=== PATIENT | male | born 1960 | race Caucasian/White ===

== ENCOUNTER 2024-04-03 07:14 | Inpatient (IN) | payer MEDICAID ==
[~2024-04-03] VITALS: Ht 182.9 cm; Wt 101.6 kg
[2024-04-03] MEDS: normal saline 1000ML IV soln IVB ONE ×2 (07:59→10:35)
[2024-04-03 08:07] LABS: ALANINE AMINOTRANSFERASE 90 U/L (12-78); ALBUMIN 3.8 G/DL (3.4-5.0); ALBUMIN/GLOBULIN RATIO 0.8 (1.1-1.5); ALKALINE PHOSPHATASE 80 IU/L (46-116); AMYLASE 21 U/L (25-115); ANION GAP 11 (8-16); ASPARTATE AMINO TRANSFERASE 357 U/L (10-37); BILIRUBIN,TOTAL 1.2 MG/DL (0.1-1.0); BLOOD UREA NITROGEN 31 MG/DL (7-18); BUN/CREATININE RATIO 19.3 (10.0-20.0); CALCIUM 9.4 MG/DL (8.5-10.1); CHLORIDE 97 MMOL/L (99-107); CREATININE 1.61 MG/DL (0.60-1.10); GLUCOSE 101 MG/DL (70-104); LIPASE 18 U/L (16-77); SODIUM 132 MMOL/L (135-145); TOTAL CARBON DIOXIDE 24.5 MMOL/L (24-32); TOTAL PROTEIN 8.4 G/DL (6.4-8.2); eCRCL 52 ML/MIN; eGFR 44 ML/MIN
[2024-04-03 08:08] LABS: BASOPHILS % (AUTO) 0.3 % (0-1); EOSINOPHILS % (AUTO) 0.1 % (0-6); HEMATOCRIT 46.5 % (42.0-52.0); HEMOGLOBIN 15.1 g/dl (14.0-17.9); LYMPHOCYTES # (AUTO) 1.1 X10'3 (1.1-4.8); LYMPHOCYTES % (AUTO) 6.8 % (21-51); MEAN CORPUSCULAR HEMOGLOBIN 29.6 PG (27.0-31.0); MEAN CORPUSCULAR HGB CONC 32.6 g/dL (33.0-36.5); MEAN CORPUSCULAR VOLUME 90.9 FL (78-98); MEAN PLATELET VOLUME 9.6 FL (7.4-10.4); MONOCYTES # (AUTO) 1.5 X10'3 (0-0.9); NEUTROPHILS # (AUTO) 12.8 X10'3 (1.8-7.7); NEUTROPHILS % (AUTO) 82.8 % (42-75); PLATELET COUNT 253 X10'3 (140-440); RED BLOOD COUNT 5.12 X10'6 (4.70-6.10); RED CELL DISTRIBUTION WIDTH 14.2 % (11.5-14.5); WHITE BLOOD COUNT 15.4 X10'3 (4.5-11.0)
[2024-04-03] MEDS ORDERED: heparin 10,000 units/1 ML INJ IV ONE (09:40)
[2024-04-03] MEDS: CefTRIAXone 2gm/D5W 50ml BAG 50 ML IV ONE (09:51)
[2024-04-03] MEDS: aspirin 81mg tab.chew PO ONE (09:51)
--- NOTE | 2024-04-03 09:58 | NUR ---
CONFIRMED WITH SY PHARMACIST, INITIAL RATE FOR HEPARIN 1000 UNITS/KG/HR AND INITIAL BOLUS WILL BE 4000 UNITS.
--- NOTE | 2024-04-03 10:02 | NUR ---
INITIAL HEPARIN DRIP DOSING HEPARIN DRIP PROTOCOL INDICATION: CARDIAC PATIENT WEIGHT(KG): 101.6 KG BASE LINE aPTT: PENDING, DRAW BEFORE STARTING BOLUS X1: 4,000 UNIT INFUSION RATE: 1,000 UNIT/HR RN NAME: BHAVANA REPEAT APTT: Q6HR Addendum: 04/03/24 at 1113 by SY GARCIA Pharm BASELINE aPTT: 27
[2024-04-03] MEDS: heparin 10,000 units/1 ML INJ IV ONE (10:26)
[2024-04-03] MEDS: heparin 25,000 UNIT/250ml bag 250 ML IV PRN (10:27)
[2024-04-03] MEDS ORDERED: potassium Cl 40MEQ/1/2NS 520ml 520 ML IV PRN (10:30)
[2024-04-03] MEDS ORDERED: potassium Cl 20 mEq SR tablet PO PRN (10:30)
[2024-04-03] MEDS ORDERED: magnesium hydroxide 30ml (MOM) UD suspension PO PRN (10:30)
[2024-04-03] MEDS ORDERED: morphine 2 MG/ML inj. syringe IV PRN ×2 (10:30)
[2024-04-03] MEDS ORDERED: magnesium Cl slow-release 64mg tablet PO PRN (10:30)
[2024-04-03] MEDS ORDERED: ondansetron/PF 4mg/2ml inj IV PRN (10:30)
[2024-04-03] MEDS ORDERED: acetaminophen 325mg tablet PO PRN (10:30)
[2024-04-03] MEDS ORDERED: magnesium sulf-water 2g/50mL 50 ML IV PRN (10:30)
[2024-04-03] MEDS: metoprolol succinate 25mg (24-HOUR) SR. Tablet PO SCH ×2 (10:30→21:43)
[2024-04-03] MEDS ORDERED: mag hydrox/Alum hydrox/simeth 30ml oral suspension PO PRN (10:30)
[2024-04-03] MEDS ORDERED: magnesium sulf-water 4G/100mL 100 ML IV PRN (10:30)
[2024-04-03] MEDS: MESSAGE TO NURSING IV ONE ×3 (10:35→18:01)
[2024-04-03] MEDS: LORazepam 2 mg/ml vial IV ONE (10:35)
[2024-04-03] MEDS ORDERED: NO HOME MEDS (10:41)
[2024-04-03 11:09] LABS: INR 1.1 INR; PROTHROMBIN TIME 11.8 SECONDS (9.0-12.0)
[2024-04-03] MEDS: nitroGLYCERIN 0.2mg/hour patch TD ONE (11:31)
--- NOTE | 2024-04-03 11:32 | NUR ---
Patient asleep and is not complaining of chest pain. Spoke with Dr. Tyson regarding placing nitro patch with systolic blood pressures running in the low 100's-90's. Will hold nitro patch at this time.
[2024-04-03] MEDS: normal saline 1000ml 1,000 ML IV SCH (12:54)
[2024-04-03 13:55] LABS: BILIRUBIN,URINE SMALL (Neg); CLARITY,URINE SLIGHTLY CLOUDY (Clear); COLOR,URINE YELLOW (Yellow); GLUCOSE, URINE NEGATIVE (Neg); KETONES,URINE 15 mg/dl (Neg); LEUKOCYTE ESTERASE ,URINE NEGATIVE (Neg); NITRITES, URINE POSITIVE (Neg); OCCULT BLOOD,URINE NEGATIVE (Neg); PH,URINE 5.5 (4.8-8.0); PROTEIN,URINE TRACE mg/dl (Neg); UROBILINOGEN,URINE 0.2 E.U/dL (0.2-1.0)
--- NOTE | 2024-04-03 14:06 | NUR ---
Dr Guzman at bedside to assess patient
[2024-04-03 14:20] LABS: HYALINE CASTS >30 /LPF (NEGATIVE); UA COLLECTION TYPE NON-SPECIFIED
[2024-04-03 14:21] LABS: MUCUS STRANDS MANY /LPF (Neg); SQUAMOUS EPITHELIAL CELL,UR FEW /LPF (FEW)
[2024-04-03 14:23] LABS: BACTERIA,URINE 1+ /HPF (Neg); RBC,URINE 0-2 /HPF (0-2); WBC,URINE 0-4 /HPF (0-4)
[2024-04-03 15:00] VITALS: BP 118/81; PULSE 74; RESP 16; TEMP 98; O2SAT 98
[2024-04-03 15:17] LABS: URINE AMPHETAMINE SCREEN POSITIVE (Neg); URINE BARBITUATE SCREEN NEGATIVE (Neg); URINE BENZODIAZEPINES SCREEN NEGATIVE (Neg); URINE CANNABINOID SCREEN POSITIVE (Neg); URINE COCAINE SCREEN NEGATIVE (Neg); URINE METHADONE SCREEN NEGATIVE (Neg); URINE OPIATE SCREEN POSITIVE (Neg); URINE PHENCYCLIDINE SCREEN NEGATIVE (Neg)
[2024-04-03 15:57] VITALS: BP 131/61; PULSE 95; RESP 18; TEMP 97.8; O2SAT 96
--- NOTE | 2024-04-03 17:27 | NUR ---
REVIEW OF HEPARIN DRIP DOSING HEPARIN DRIP PROTOCOL INDICATION: CARDIAC PATIENT WEIGHT(KG): 101.6KG APTT:31 TIME COLLECTED: 1645 CURRENT RATE: 1000 UNITS/HR CHANGE IN INFUSION RATE: 1100 UNITS/HR RE- BOLUS:4000 RN NAME: SHILPA TITUS APTT: 6HOURS Addendum: 04/03/24 at 1800 by Kimberlee Gonzales [facility] RATE INCREASE TO 1200UNITS/HR NOT 1100
[2024-04-03] MEDS: heparin 10,000 units/1 ML INJ IV PRN (17:32)
[2024-04-03 18:00] VITALS: BP 122/79; PULSE 100; RESP 18; TEMP 98.7; O2SAT 97
--- NOTE | 2024-04-03 18:28 | NUR ---
Problems reprioritized. Patient report given, questions answered & plan of care reviewed with Carly. Addendum: 04/03/24 at 1828 by Alonso Mclean RN Amended: Links added.
[2024-04-03] MEDS ORDERED: bisacodyl 5mg tablet.DR PO PRN (19:00)
[2024-04-03 20:00] VITALS: RESP 18; O2SAT 97
[2024-04-03] MEDS: K and/or MAG REPLACEMENT MC SCH (20:00)
[2024-04-03 22:00] VITALS: BP 135/82; PULSE 101; RESP 23; TEMP 98.8; O2SAT 98
[2024-04-04] VITALS (8 sets, daily range): BP systolic 111–140; BP diastolic 65–91; PULSE 89–104; RESP 16–22; TEMP 98.1–99.2; O2SAT 93–99
--- NOTE | 2024-04-04 00:17 | NUR ---
REVIEW OF HEPARIN DRIP DOSING (PROTOCOL) INDICATION: CARDIAC PATIENT WEIGHT(KG): 101.6 KG APTT: 37 SECONDS TIME COLLECTED: 04/03 @ 3530 CURRENT RATE: 1200 UNITS/HR (12 ML/HR) CHANGE IN INFUSION RATE: INCR TO 1400 UNITS/HR (14 ML/HR) RE- BOLUS: 4000 UNITS RN NAME: ASH REPEAT APTT: 04/04 @ 0637
[2024-04-04] MEDS: MESSAGE TO NURSING IV ONE ×4 (00:41→22:07)
--- NOTE | 2024-04-04 06:00 | NUR ---
Patient in room PCU 3028. I have received report from Carly and had the opportunity to ask questions and assume patient care.
--- NOTE | 2024-04-04 06:08 | NUR ---
Problems reprioritized. Patient report given, questions answered & plan of care reviewed with Alonso RN and LEMUEL Mills.
[2024-04-04] MEDS: atorvastatin 20mg tablet PO SCH (07:25)
[2024-04-04] MEDS: aspirin 81mg, enteric-coated 1 TAB TABLET.DR PO SCH (07:25)
[2024-04-04] MEDS: levoFLOXACIN-Levaquin 750MG/D5 150 ML IV SCH (07:26)
[2024-04-04 07:27] LABS: BASOPHILS % (AUTO) 0.2 % (0-1); EOSINOPHILS % (AUTO) 0.1 % (0-6); HEMATOCRIT 37.7 % (42.0-52.0); HEMOGLOBIN 12.4 g/dl (14.0-17.9); LYMPHOCYTES % (AUTO) 8.5 % (21-51); MEAN CORPUSCULAR HEMOGLOBIN 29.5 PG (27.0-31.0); MEAN CORPUSCULAR HGB CONC 32.9 g/dL (33.0-36.5); MEAN CORPUSCULAR VOLUME 89.7 FL (78-98); MEAN PLATELET VOLUME 10.2 FL (7.4-10.4); MONOCYTES % (AUTO) 8.7 % (2-12); NEUTROPHILS # (AUTO) 9.3 X10'3 (1.8-7.7); NEUTROPHILS % (AUTO) 82.5 % (42-75); PLATELET COUNT 198 X10'3 (140-440); RED CELL DISTRIBUTION WIDTH 14.1 % (11.5-14.5); WHITE BLOOD COUNT 11.3 X10'3 (4.5-11.0)
[2024-04-04 07:30] LABS: INR 1.2 INR; PROTHROMBIN TIME 12.4 SECONDS (9.0-12.0)
[2024-04-04 07:49] LABS: ALANINE AMINOTRANSFERASE 178 U/L (12-78); ALBUMIN 2.5 G/DL (3.4-5.0); ALBUMIN/GLOBULIN RATIO 0.6 (1.1-1.5); ALKALINE PHOSPHATASE 103 IU/L (46-116); ANION GAP 10 (8-16); ASPARTATE AMINO TRANSFERASE 300 U/L (10-37); BILIRUBIN,TOTAL 1.3 MG/DL (0.1-1.0); BLOOD UREA NITROGEN 23 MG/DL (7-18); BUN/CREATININE RATIO 23.5 (10.0-20.0); CALCIUM 8.3 MG/DL (8.5-10.1); CHLORIDE 101 MMOL/L (99-107); CHOL/HDL RATIO 2.4 (0.00-4.99); CHOLESTEROL 104 MG/DL (0-200); CREATININE 0.98 MG/DL (0.60-1.10); FREE T4 (FREE THYROXINE) 1.24 NG/DL (0.73-1.40); GLUCOSE 102 MG/DL (70-104); HDL CHOLESTEROL 43 MG/DL (35-60); LDL CHOLESTEROL 40 MG/DL (50-100); PHOSPHORUS 2.1 MG/DL (2.3-4.5); POTASSIUM 3.6 MMOL/L (3.5-5.1); SODIUM 132 MMOL/L (135-145); THYROID STIMULATING HORMONE 3.39 ulU/ml (0.34-4.50); TOTAL CARBON DIOXIDE 21.3 MMOL/L (24-32); TOTAL PROTEIN 6.6 G/DL (6.4-8.2); TRIGLYCERIDES 56 MG/DL (20-135); eCRCL 85 ML/MIN; eGFR 77 ML/MIN
[2024-04-04 07:52] LABS: HEMOGLOBIN A1C 5.8 % (4.5-6.2)
--- NOTE | 2024-04-04 07:57 | NUR ---
REVIEW OF HEPARIN DRIP DOSING HEPARIN DRIP PROTOCOL INDICATION: CARDIAC PATIENT WEIGHT(KG): 101.6 KG APTT: 38 TIME COLLECTED: @0633 CURRENT RATE: 1400 UNIT/HR CHANGE IN INFUSION RATE: INCREASE TO 1600 UNIT/HR RE- BOLUS: 4000 UNIT RN NAME: SHILPA REPEAT APTT: AFTER 6 HOURS
[2024-04-04] MEDS ORDERED: iohexol 350MG/ML 100ml bottle IV ONE (10:50)
[2024-04-04] MEDS: lisinopril 2.5mg tablet PO SCH (12:58)
--- NOTE | 2024-04-04 15:14 | NUR ---
HEPARIN DRIP PROTOCOL INDICATION: CARDIAC PATIENT WEIGHT(KG): 101.6 KG APTT: 39 TIME COLLECTED: 04/04/24@1434 CURRENT RATE: 1600 UNITS/HR CHANGE IN INFUSION RATE: INCREASE TO 1800 UNITS/HR RE- BOLUS: 4100 UNITS RN NAME: SHILPA REPEAT APTT: IN 6 HOURS
--- NOTE | 2024-04-04 18:13 | NUR ---
Problems reprioritized. Patient report given, questions answered & plan of care reviewed with Carly. Addendum: 04/04/24 at 1813 by Alonso Mclean RN Amended: Links added.
--- NOTE | 2024-04-04 21:48 | NUR ---
REVIEW OF HEPARIN DRIP DOSING (PROTOCOL): INDICATION: CARDIAC PATIENT WEIGHT(KG): 101.6 KG APTT: 42 SECONDS TIME COLLECTED: 04/04 @ 6361 CURRENT RATE: 1800 UNITS/HR (18 ML/HR) CHANGE IN INFUSION RATE: INCR TO 2000 UNITS/HR (20 ML/HR) RE- BOLUS: 4000 UNITS RN NAME: PHOENIX REPEAT APTT: 04/05 @ 9949
[2024-04-05 02:00] VITALS: BP 136/88; PULSE 99; RESP 26; TEMP 98; O2SAT 98
[2024-04-05 04:19] LABS: BASOPHILS % (AUTO) 0.2 % (0-1); EOSINOPHILS % (AUTO) 0.1 % (0-6); HEMATOCRIT 36.5 % (42.0-52.0); LYMPHOCYTES # (AUTO) 0.9 X10'3 (1.1-4.8); LYMPHOCYTES % (AUTO) 9.9 % (21-51); MEAN CORPUSCULAR HEMOGLOBIN 29.3 PG (27.0-31.0); MEAN CORPUSCULAR VOLUME 88.9 FL (78-98); MEAN PLATELET VOLUME 9.3 FL (7.4-10.4); MONOCYTES # (AUTO) 0.9 X10'3 (0-0.9); MONOCYTES % (AUTO) 10.4 % (2-12); NEUTROPHILS % (AUTO) 79.4 % (42-75); PLATELET COUNT 204 X10'3 (140-440); RED BLOOD COUNT 4.11 X10'6 (4.70-6.10); RED CELL DISTRIBUTION WIDTH 13.8 % (11.5-14.5); WHITE BLOOD COUNT 8.8 X10'3 (4.5-11.0)
[2024-04-05 04:32] LABS: ALANINE AMINOTRANSFERASE 124 U/L (12-78); ALBUMIN 2.3 G/DL (3.4-5.0); ALBUMIN/GLOBULIN RATIO 0.6 (1.1-1.5); ALKALINE PHOSPHATASE 96 IU/L (46-116); ANION GAP 8 (8-16); ASPARTATE AMINO TRANSFERASE 136 U/L (10-37); BILIRUBIN,TOTAL 0.8 MG/DL (0.1-1.0); BLOOD UREA NITROGEN 20 MG/DL (7-18); BUN/CREATININE RATIO 25.6 (10.0-20.0); CALCIUM 8.1 MG/DL (8.5-10.1); CHLORIDE 101 MMOL/L (99-107); CREATININE 0.78 MG/DL (0.60-1.10); GLUCOSE 102 MG/DL (70-104); MAGNESIUM 1.7 MG/DL (1.5-2.4); PHOSPHORUS 2.1 MG/DL (2.3-4.5); POTASSIUM 3.4 MMOL/L (3.5-5.1); SODIUM 132 MMOL/L (135-145); TOTAL CARBON DIOXIDE 23.1 MMOL/L (24-32); TOTAL PROTEIN 6.3 G/DL (6.4-8.2); eCRCL 106 ML/MIN; eGFR > 90 ML/MIN
[2024-04-05 04:37] LABS: INR 1.1 INR; PROTHROMBIN TIME 11.9 SECONDS (9.0-12.0)
--- NOTE | 2024-04-05 05:02 | NUR ---
REVIEW OF HEPARIN DRIP DOSING (PROTOCOL): INDICATION: CARDIAC PATIENT WEIGHT(KG): 101.6 KG APTT: 40 SECONDS TIME COLLECTED: 04/05 @ 0406 CURRENT RATE: 2000 UNITS/HR (20 ML/HR) CHANGE IN INFUSION RATE: INCR RATE TO 2200 UNITS/HR (22 ML/HR) RE- BOLUS: 4000 UNITS RN NAME: PHOENIX REPEAT APTT: 04/05 @ 1100
[2024-04-05] MEDS: MESSAGE TO NURSING IV ONE (05:03)
[2024-04-05 06:00] VITALS: BP 139/87; PULSE 95; RESP 27; TEMP 97.9; O2SAT 98
--- NOTE | 2024-04-05 06:20 | NUR ---
Problems reprioritized. Patient report given, questions answered & plan of care reviewed with LEMUEL Funes and LEMUEL Delgado.
--- NOTE | 2024-04-05 06:30 | NUR ---
Patient in room PCU 3025. I have received report from Carly RN &yuliana Dwyer RN and had the opportunity to ask questions and assume patient care.
[2024-04-05 07:23] LABS: PRO BRAIN NATRIURETIC PEPTIDE 2305 PG/ML (0-125)
[2024-04-05] MEDS ORDERED: HYDROcodone/acetaminophen 10/325mg tab PO PRN (08:55)
[2024-04-05] MEDS ORDERED: morphine 2 MG/ML inj. syringe IV PRN (08:55)
[2024-04-05 10:00] VITALS: BP 131/83; PULSE 96; RESP 22; TEMP 98.4; O2SAT 98
[2024-04-05 10:15] VITALS: RESP 22; O2SAT 98
[2024-04-05] MEDS: atorvastatin 20mg tablet PO SCH (10:19)
[2024-04-05] MEDS: potassium Cl 20 mEq SR tablet PO PRN (10:19)
[2024-04-05 10:20] VITALS: BP_SYST 139
[2024-04-05] MEDS: metoprolol succinate 25mg (24-HOUR) SR. Tablet PO SCH (10:20)
[2024-04-05] MEDS ORDERED: ATOR20TA66 PO ×2 (10:36→14:04)
[2024-04-05] MEDS ORDERED: ASPI-1071 PO (10:36)
[2024-04-05] MEDS ORDERED: SPIR25TA5 PO (10:36)
[2024-04-05] MEDS ORDERED: LISI5TAB22 PO (10:36)
[2024-04-05] MEDS ORDERED: METO-395 PO ×2 (10:36→14:04)
--- NOTE | 2024-04-05 12:45 | NUR ---
DC inst provided to pt. IV x2 DC'd, tips intact. All belongings sent w/pt. Pt ambulated out main entrance.
== END 2024-04-05 12:44 | disposition home or self-care (01) | DRG 190 ==
LOC: ER 07:16 → ED HOLD 10:33 → PCU 3S 16:10
PROVIDERS: ADMIT Internal Medicine; ATTEND Internal Medicine
PROC: B32T1ZZ Computerized Tomography (CT Scan) of Left Pulmonary Artery using Low Osmolar Contrast (ICD-10-PCS; principal; 2024-04-04)
PROC: B3201ZZ Computerized Tomography (CT Scan) of Thoracic Aorta using Low Osmolar Contrast (ICD-10-PCS; 2024-04-04)
PROC: B32S1ZZ Computerized Tomography (CT Scan) of Right Pulmonary Artery using Low Osmolar Contrast (ICD-10-PCS; 2024-04-04)
DX: I21.4 Non-ST elevation (NSTEMI) myocardial infarction (principal); N17.0 Acute kidney failure with tubular necrosis; I31.39 Other pericardial effusion (noninflammatory); I50.23 Acute on chronic systolic (congestive) heart failure; K81.9 Cholecystitis, unspecified; I11.0 Hypertensive heart disease with heart failure; K59.00 Constipation, unspecified; F10.20 Alcohol dependence, uncomplicated; F17.200 Nicotine dependence, unspecified, uncomplicated; R74.01 Elevation of levels of liver transaminase levels; F19.10 Other psychoactive substance abuse, uncomplicated
CPT/HCPCS: 36415; 71045; 71275; 74176; 76700; 80053; 80061; 80305; 81001; 82150; 83036; 83690; 83735; 83880; 84100; 84145; 84439; 84443; 84484; 85025; 85610; 85730; 87081; 87088; 93005; 93306; 99291; G0378; J0696; J1644; J1956; J2060; J7030; Q9967